=== PATIENT | female | born 1970 | race Two or more races ===

== ENCOUNTER 2021-11-03 19:06 | Emergency (ER) | payer MEDICAID, OTHER ==
[~2021-11-03] VITALS: Ht 170.2 cm; Wt 59.0 kg
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
--- NOTE | 2021-11-03 20:43 | NUR ---
PT TAKEN TO CT
[2021-11-03 21:00] VITALS: BP 111/70
[2021-11-03] MEDS ORDERED: CYCL10TA9 PO (21:37)
[2021-11-03] MEDS ORDERED: IBUP-1955 PO (21:37)
[2021-11-03] MEDS ORDERED: IBUPROFEN 600 MG TABLET ONE (21:38)
--- NOTE | 2021-11-03 21:50 | NUR ---
Patient discharged to home in stable condition. Rx and Written and verbal after care instructions given. Patient verbalizes understanding of instruction.
[2021-11-03] MEDS ORDERED: IBUPROFEN 600 MG TABLET PO ONE ×2 (22:00)
== END 2021-11-03 21:51 | disposition home or self-care (01) ==
LOC: ER 19:09
DX: S09.90XA Unspecified injury of head, initial encounter (principal); S16.1XXA Strain of muscle, fascia and tendon at neck level, initial encounter; Z60.2 Problems related to living alone; V49.9XXA Car occupant (driver) (passenger) injured in unspecified traffic accident, initial encounter; Y93.89 Activity, other specified; Y92.89 Other specified places as the place of occurrence of the external cause; Y99.8 Other external cause status
CPT/HCPCS: 70450-TC; 72125-TC